=== PATIENT | male | born 1940 | race Caucasian/White ===

== ENCOUNTER 2024-12-07 11:26 | Outpatient (CLI) | payer MEDICARE, SELFPAY | END 2024-12-07 11:27 | disposition home or self-care (01) | LOC: NFLDREF 12-12 03:50 | PROVIDERS: PCP Internal Medicine; Referring Provider Internal Medicine; Visit Provider Internal Medicine Nephrology | DX: N18.4 Chronic kidney disease, stage 4 (severe) (principal); E11.22 Type 2 diabetes mellitus with diabetic chronic kidney disease; I12.9 Hypertensive chronic kidney disease with stage 1 through stage 4 chronic kidney disease, or unspecified chronic kidney disease; I50.9 Heart failure, unspecified; R53.83 Other fatigue | CPT/HCPCS: 80069; 82043; 82570; 84550; 87086 ==

== ENCOUNTER 2025-03-12 11:25 | Outpatient (CLI) | payer MEDICARE, SELFPAY | END 2025-03-12 11:26 | disposition home or self-care (01) | LOC: NFLDREF 03-14 18:47 | PROVIDERS: PCP Internal Medicine; Referring Provider Internal Medicine; Visit Provider Internal Medicine Nephrology | DX: E11.22 Type 2 diabetes mellitus with diabetic chronic kidney disease (principal); I12.9 Hypertensive chronic kidney disease with stage 1 through stage 4 chronic kidney disease, or unspecified chronic kidney disease; N18.4 Chronic kidney disease, stage 4 (severe); R82.90 Unspecified abnormal findings in urine | CPT/HCPCS: 80061; 80069; 83970; 84450; 84460; 84550; 87086 ==